=== PATIENT | male | born 1960 | race Caucasian/White ===

== ENCOUNTER 2019-08-12 19:48 | Emergency (ER) | payer MEDICAID ==
[~2019-08-12] VITALS: Ht 167.6 cm; Wt 86.7 kg
[~2019-08-12 19:48] MED LIST: ACET500C5 PO; ALBU8.5H8 INH; BEN25 PO; EPIN0.3P4 INJ; FAMO-96 PO; IBUP-1542 PO; LORA10CA PO; ONDA4TAB14 PO; PRED20TA PO
[2019-08-12 20:12] VITALS: BP 179/98; PULSE 92; RESP 20; Ht 167.6 cm; Wt 86.7 kg
[2019-08-12] MEDS ORDERED: IBUPROFEN 600 MG TAB PO ONE (21:00)
== END 2019-08-12 22:10 | disposition home or self-care (01) ==
LOC: FTE 19:48
DX: M54.5 Low back pain (principal); T75.4XXA Electrocution, initial encounter; J45.909 Unspecified asthma, uncomplicated
CPT/HCPCS: 72100; 93005; Z7502; Z7610